=== PATIENT | female | born 1985 | race Caucasian/White ===

== ENCOUNTER 2019-05-12 16:54 | Outpatient (CLI) | payer OTHER ==
--- NOTE | 2019-05-13 16:39 | Ultrasound Report ---
Reason: ABNORMAL VAGINAL BLEEDING Procedure Date: 05/12/2019 Accession Number: [id number] / [id number] Procedure: US - Pelvic w/Transvaginal CPT Code: FULL RESULT: EXAM: PELVIC ULTRASOUND EXAM DATE: 05/12/2019 05:40 PM. CLINICAL HISTORY: Abnormal vaginal bleeding. COMPARISON: None. TECHNIQUE: Realtime transabdominal pelvic scan performed to identify the uterus and adnexa and as an overview of other pelvic structures, followed by transvaginal scan to provide greater detail of the uterus and adnexa, with static image documentation. FINDINGS: Uterus: 8.7 x 4.5 x 5.6 cm, volume 114 cc. Anteverted and retroflexed position. Normal overall size and echotexture. Masses: None. Endometrium: 10 mm. No endometrial mass or polyp. Cervix: No mass. Incidental nabothian cyst is noted. Right Ovary: 4.9 x 2.2 x 3.5 cm, volume 19.4 cc. Normal echotexture and blood flow. Multiple ovarian follicles are noted. Left Ovary: 5.6 x 2.9 x 5 cm, volume 43.1 cc. Normal echotexture and blood flow. 2.4 x 1.7 x 1.6 Cm complex left ovarian cyst with debris and mild peripheral flow. No mural nodules or thickened septations. Free Fluid: Moderate amount of free fluid noted in the pelvis. Other: None. IMPRESSION: 1. Mildly complex 2.4 cm left ovarian cyst could represent a corpus luteum. Multiple simple right ovarian follicles. Otherwise, both ovaries and adnexa are normal. 2. No endometrial mass or polyp. 3. No uterine fibroids. RADIA
== END 2019-05-12 16:55 | disposition home or self-care (01) ==
LOC: DI 16:54
PROVIDERS: ATTEND Family Medicine
DX: N83.292 Other ovarian cyst, left side (principal)
CPT/HCPCS: 76830; 76856

== ENCOUNTER 2019-06-07 08:00 | Outpatient (CLI) | payer OTHER ==
[2019-06-07 21:53] LABS: TRICHOMONAS VAGINALIS DNA NEGATIVE (NEGATIVE)
== END 2019-06-07 23:59 | disposition home or self-care (01) ==
LOC: LAB.R 08:00
PROVIDERS: ATTEND Registered Nurse
DX: N93.9 Abnormal uterine and vaginal bleeding, unspecified (principal)
CPT/HCPCS: 87491; 87591; 87661

== ENCOUNTER 2019-06-08 06:18 | Outpatient (CLI) | payer OTHER ==
[2019-06-08 06:32] LABS: BASOPHILS % (AUTO) 0.7 %; EOSINOPHILS # (AUTO) 0.1 10^3/uL (0.0-0.7); EOSINOPHILS % (AUTO) 2.2 %; HGB - HEMOGLOBIN 14.1 g/dL (12.0-16.0); LYMPHOCYTES # (AUTO) 1.6 10^3/uL (1.5-3.5); LYMPHOCYTES % (AUTO) 34.9 %; MEAN CORPUSCULAR HEMOGLOBIN 30.5 pg (27.0-31.0); MEAN CORPUSCULAR VOLUME 92.4 fL (81.0-99.0); MEAN PLATELET VOLUME 9.7 fL (7.9-10.8); MONOCYTES # (AUTO) 0.4 10^3/uL (0.0-1.0); MONOCYTES % (AUTO) 8.5 %; NEUTROPHILS # (AUTO) 2.5 10^3/uL (1.5-6.6); NEUTROPHILS % (AUTO) 53.5 %; PLT - PLATELET COUNT 178 10^3/uL (130-450); RED BLOOD COUNT 4.62 10^6/uL (4.20-5.40); RED CELL DISTRIBUTION WIDTH 12.2 % (12.0-15.0); WHITE BLOOD COUNT 4.6 x10^3/uL (4.8-10.8)
[2019-06-08 07:22] LABS: HB2 TOTAL 14.4 g/dL; HEMOGLOBIN A1C 0.44 g/dL; HEMOGLOBIN A1C % 4.9 % (4.6-6.2)
== END 2019-06-08 06:19 | disposition home or self-care (01) ==
LOC: LAB 06:18
PROVIDERS: ATTEND Registered Nurse
DX: N93.9 Abnormal uterine and vaginal bleeding, unspecified (principal)
CPT/HCPCS: 36415; 82947; 83036; 84443; 85025

== ENCOUNTER 2019-07-07 17:16 | Outpatient (CLI) | payer OTHER ==
--- NOTE | 2019-07-08 01:01 | Ultrasound Report ---
Reason: ABNORMAL VAGINAL BLEEDING Procedure Date: 07/07/2019 Accession Number: [id number] / [id number] Procedure: US - Pelvic w/Transvaginal CPT Code: FULL RESULT: EXAM: PELVIC ULTRASOUND EXAM DATE: 07/07/2019 05:55 PM. CLINICAL HISTORY: Abnormal vaginal bleeding. COMPARISON: PELVIC W/TRANSVAGINAL 05/12/2019 5:08 PM. TECHNIQUE: Realtime transabdominal pelvic scan performed to identify the uterus and adnexa and as an overview of other pelvic structures, followed by transvaginal scan to provide greater detail of the uterus and adnexa, with static image documentation. FINDINGS: Uterus: 8.4 x 4.4 x 5.8 cm, volume 109.9 cc. Anteverted transabdominally then retroverted on transvaginal examination. Normal overall size and echotexture. Masses: None. Endometrium: 9 mm. Normal. Cervix: Unremarkable. Right Ovary: 5.1 x 3.2 x 3 cm, volume 25.4 cc. Normal echotexture and blood flow. Left Ovary: 3.6 x 2.3 x 2.2 cm, volume 9.7 cc. Normal echotexture and blood flow. Free Fluid: None. Other: None. IMPRESSION: Normal pelvic ultrasound. RADIA
== END 2019-07-07 17:17 | disposition home or self-care (01) ==
LOC: DI 17:16
PROVIDERS: ATTEND Registered Nurse
DX: N93.9 Abnormal uterine and vaginal bleeding, unspecified (principal)
CPT/HCPCS: 76830; 76856

== ENCOUNTER 2021-01-20 16:08 | Outpatient (CLI) | payer OTHER | END 2021-01-20 23:59 | disposition home or self-care (01) | LOC: LAB.R 16:08 | PROVIDERS: ATTEND Nurse Practitioner | DX: R05 Cough (principal); Z20.822 Contact with and (suspected) exposure to COVID-19 | CPT/HCPCS: 87275; 87276 ==

== ENCOUNTER 2021-02-14 08:00 | Outpatient (CLI) | payer OTHER ==
--- NOTE | 2021-02-14 16:44 | XRAY Report ---
PROCEDURE: Chest 2 View X-Ray INDICATIONS: Cough TECHNIQUE: 2 view(s) of the chest. COMPARISON: None. FINDINGS: Surgical changes and devices: None. Lungs and pleura: No pleural effusions or pneumothorax. Lungs are clear. Mediastinum: Mediastinal contours are normal. Heart size is normal. Bones and chest wall: No suspicious bony abnormalities. Soft tissues appear unremarkable. IMPRESSION: No acute cardiopulmonary process demonstrated radiographically. Reviewed by: Jose G Hernandez MD on 02/14/2021 4:43 PM PDT Approved by: Jose G Hernandez MD on 02/14/2021 4:43 PM PDT Station ID: [id number]
== END 2021-02-14 23:59 | disposition home or self-care (01) ==
LOC: DI.N 08:00
PROVIDERS: ATTEND Family Medicine
DX: R05 Cough (principal)

== ENCOUNTER 2021-03-04 09:25 | Outpatient (CLI) | payer OTHER | END 2021-03-04 09:26 | disposition home or self-care (01) | LOC: RT 09:25 | PROVIDERS: ATTEND Family Medicine | DX: J45.909 Unspecified asthma, uncomplicated (principal); R05 Cough | CPT/HCPCS: 94010; 94664; 94729 ==

== ENCOUNTER 2021-09-13 08:00 | Outpatient (CLI) | payer OTHER ==
--- NOTE | 2021-09-13 15:03 | XRAY Report ---
PROCEDURE: Foot 3 View LT INDICATIONS: LEFT FOOT DISTAL 3RD/4TH METATARSAL TENDERNESS TECHNIQUE: 3 views of the foot were acquired. COMPARISON: None FINDINGS: Bones: No fractures or dislocations. No suspicious bony lesions. No significant degenerative change s. Soft tissues: No tibiotalar joint effusion. Achilles tendon appears normal. IMPRESSION: No acute osseous abnormality. Reviewed by: Ahmet Dalton DO on 09/13/2021 2:01 PM LEANNE Approved by: Ahmet Dalton DO on 09/13/2021 2:01 PM LEANNE Station ID: [id number]
== END 2021-09-13 23:59 | disposition home or self-care (01) ==
LOC: DI.N 08:00
PROVIDERS: ATTEND Physician Assistant Medical
DX: S93.602A Unspecified sprain of left foot, initial encounter (principal)

== ENCOUNTER 2021-09-23 13:37 | Outpatient (CLI) | payer OTHER ==
--- NOTE | 2021-10-06 09:43 | XRAY Report ---
PROCEDURE: Foot 3 View LT INDICATIONS: NONDISPLACED FX OF 3RD METATARSAL, L FOOT TECHNIQUE: 3 views of the foot were acquired. COMPARISON: 09/13/2021 FINDINGS: Bones: There is normal left alignment with weight bearing. Subtle sclerosis traversing third metatar petrona base is seen which may represent a healing stress fracture in this area. No other fracture or dis location is seen. No suspicious bony lesions. Soft tissues: No tibiotalar joint effusion. Achilles tendon appears normal. IMPRESSION: Finding may represent a healing subtle stress fracture involving third metatarsal base. No other frac ture or dislocation is seen. Normal left alignment with weight bearing. Reviewed by: Gregory Montejo MD on 10/06/2021 9:25 AM PST Approved by: Gregory Montejo MD on 10/06/2021 9:25 AM PST Station ID: [id number]
== END 2021-09-23 13:38 | disposition home or self-care (01) ==
LOC: DI.N 13:37
PROVIDERS: ATTEND Physician Assistant
DX: S92.335A Nondisplaced fracture of third metatarsal bone, left foot, initial encounter for closed fracture (principal)